=== PATIENT | male | born 1995 | race Hispanic/Latino ===

== ENCOUNTER 2018-12-02 21:40 | Emergency (ER) | payer OTHER ==
[~2018-12-02] VITALS: Ht 157.5 cm; Wt 66.4 kg
[2018-12-02 23:46] VITALS: BP 128/72
== END 2018-12-02 23:58 | disposition home or self-care (01) | DRG 605 ==
LOC: ED 21:40
PROC: 0HQ1XZZ Repair Face Skin, External Approach (ICD-10-PCS; principal; 2018-12-02)
DX: S01.81XA Laceration without foreign body of other part of head, initial encounter (principal); W22.8XXA Striking against or struck by other objects, initial encounter; Y92.89 Other specified places as the place of occurrence of the external cause; Y99.0 Civilian activity done for income or pay

== ENCOUNTER 2018-12-03 20:11 | Emergency (ER) | payer OTHER ==
[~2018-12-03] VITALS: Ht 157.5 cm; Wt 66.4 kg
[2018-12-03 20:43] VITALS: BP 118/67
== END 2018-12-03 20:49 | disposition home or self-care (01) | DRG 950 ==
LOC: ED 20:11
DX: S01.81XD Laceration without foreign body of other part of head, subsequent encounter (principal); X58.XXXD Exposure to other specified factors, subsequent encounter

== ENCOUNTER 2018-12-15 18:51 | Emergency (ER) | payer OTHER ==
[~2018-12-15] VITALS: Ht 157.5 cm; Wt 62.8 kg
[2018-12-15 19:30] VITALS: BP 113/66
== END 2018-12-15 19:30 | disposition home or self-care (01) | DRG 950 ==
LOC: ED 18:51
DX: S01.81XD Laceration without foreign body of other part of head, subsequent encounter (principal); X58.XXXD Exposure to other specified factors, subsequent encounter